=== PATIENT | male | born 1940 | race African-American/Black ===

== ENCOUNTER 2025-04-24 09:15 | Emergency (ER) | payer MEDICARE, MEDICAID ==
[~2025-04-24] VITALS: Ht 177.8 cm; Wt 95.0 kg
[2025-04-24 09:17] VITALS: O2SAT 99
[2025-04-24 09:30] LABS: BASOPHILS % 0.8 % (0.0-2.0); EOSINOPHILS % 0.5 % (0.0-5.0); HEMATOCRIT. 37.7 % (42.0-52.0); HEMOGLOBIN. 12.9 g/dL (14.0-18.0); LYMPHOCYTES % 8.4 % (20.0-50.0); MEAN PLATELET VOLUME 9.5 fl (7.4-10.4); MONOCYTES % 8.5 % (2.0-8.0); NEUTROPHILS % 81.8 % (40.0-76.0); PLATELET 131 x1000/uL (130-400); RED BLOOD CELL COUNT 4.35 mill/uL (4.7-6.1); RED CELL DISTRIBUTION WIDTH 14.0 % (11.6-14.6)
[2025-04-24 09:48] LABS: CREATININE 1.9 mg/dL (0.6-1.3); UREA NITROGEN BLOOD 21 mg/dL (9-23)
[2025-04-24 09:55] LABS: TROPONIN I HIGH SENSITIVITY 80 ng/L (3.0-53)
[2025-04-24 10:35] LABS: BG BASE EXCESS -1.3 mmol/L (-2.0-3.0); BG CARBOXYHEMOGLOBIN 0.6 % (0.5-1.5); BG DEOXYHEMOGLOBIN 1.9 % (0.0-5.0); BG FLOW(L/min) 4.00 L/min; BG FRACTION INSPIRED OXYGEN 36; BG HCO3 ACT 23.5 mmol/L (21.0-28.0); BG METHEMOGLOBIN 0.3 % (0.5-1.5); BG OXYGEN SATURATION 98.1 % (94.0-98.0); BG OXYHEMOGLOBIN 97.2 % (94.0-98.0); BG PCO2 39.8 mmHg (35.0-48.0); BG PH 7.389 (7.350-7.450); BG PO2 110.4 mmHg (83.0-108.0); BG SAMPLE SITE RIGHT RADIAL; BG TOTAL HEMOGLOBIN 13.4 g/dL (13.5-17.5); BG VENT MODE NASAL CANNULA
[2025-04-24 11:52] LABS: PHOSPHORUS 1.5 mg/dL (2.5-4.9)
[2025-04-24 11:55] VITALS: BP 130/88; PULSE 80; RESP 15; TEMP 37.1; O2SAT 97
== END 2025-04-24 12:00 | disposition left against medical advice (07) ==
LOC: ER 09:15 → CMPBEDREQ 12:27
DX: I21.3 ST elevation (STEMI) myocardial infarction of unspecified site (principal); I10 Essential (primary) hypertension
CPT/HCPCS: 36415; 36600; 71045; 80048; 82375; 82805; 83605; 83735; 84100; 84145; 84484; 85025; 93005; 99285